=== PATIENT | male | born 1960 | race African-American/Black ===

== ENCOUNTER 2022-03-21 15:54 | Outpatient (CLI) | payer BC ==
[2022-03-21 17:01] LABS: #Basophils 0.1 10x3/uL (0.0-0.2); #Eosinphils 0.2 10x3/uL (0.0-0.5); #Monocytes 0.7 10x3/uL (0.0-1.1); #Neutrophils 2.5 10x3/uL (1.5-8.4); %Basophils 1.2 % (0.0-2.0); %Eosinophils 3.7 % (0.0-6.0); %Lymphocytes 45.9 % (18.0-47.0); %Neutrophils 37.6 % (40.0-75.0); Hemoglobin 15.4 g/dL (13.5-17.5); Mean Corpuscular HGB CONC 33.3 g/dL (32.0-36.0); Mean Corpuscular Hemoglobin 29.8 pg (27.0-33.0); Mean Corpuscular Volume 89.6 fl (81.2-95.1); Mean Platelet Volume 12.4 fl (7.4-10.4); Platelet Count 124 10x3/uL (150-450); RBC Distribution Width 13.7 % (11.5-14.5); Red Blood Cell (RBC) Count 5.17 10x6/uL (4.32-5.72); White Blood Cell (WBC) Count 6.5 10x3/uL (3.5-10.5)
[2022-03-21 17:14] LABS: PTT 22.2 sec (22.0-33.0); Prothrombin Time 10.9 sec (9.5-12.1)
[2022-03-21 17:20] LABS: Anion Gap 16 mmol/L (10-20); BUN (Urea Nitrogen) 17 mg/dL (8.4-25.7); Calc. Creatinine Clearance 0 mL/min (70-130); Calcium 9.2 mg/dL (7.8-10.44); Carbon Dioxide 30 mmol/L (23-31); Chloride 99 mmol/L (98-107); Glucose 82 mg/dL (80-115); Potassium 3.6 mmol/L (3.5-5.1); Sodium 141 mmol/L (136-145)
[2022-03-21 17:24] LABS: Platelet Morphology Comment Appears Decreased
[2022-03-22 02:13] LABS: SARS-CoV-2 PCR by NAA Not Detected (NotDetected)
== END 2022-03-21 15:55 | disposition home or self-care (01) ==
LOC: LABBT 15:54
PROVIDERS: ATTEND Orthopaedic Surgery
DX: Z01.818 Encounter for other preprocedural examination (principal); M16.11 Unilateral primary osteoarthritis, right hip; Z20.822 Contact with and (suspected) exposure to COVID-19
CPT/HCPCS: 80048; 85025; 85610; 85730; 87081; 93005; 93010; U0003; U0005

== ENCOUNTER 2022-03-26 08:05 | Observation (INO) | payer BC ==
[2022-03-21 13:09] VITALS: BMI 29.1
[2022-03-26] MEDS ORDERED: Tranexamic Acid 1,000 MG/10 ML VIAL ONE (08:16)
[2022-03-26] MEDS ORDERED: Vancomycin 1 GM/200 ML BAG ONE (08:16)
[2022-03-26] MEDS ORDERED: Sodium Chloride 0.9% 100 ML ONE (08:16)
[2022-03-26] MEDS ORDERED: Midazolam HCl 2 mg/2 ml Vial ONE ×2 (08:42→09:09)
[2022-03-26] MEDS ORDERED: Fentanyl 100 MCG/2 ML VIAL ONE ×2 (08:42→11:03)
[2022-03-26] MEDS ORDERED: Dexamethasone 4 mg/ml Vial ONE (08:42)
[2022-03-26] MEDS ORDERED: Ropivacaine 0.5% HCl/PF (150 MG/30 ML VIAL) ONE (09:00)
[2022-03-26] MEDS ORDERED: Dexamethasone 20 MG/5 ML VIAL ONE (09:00)
[2022-03-26] MEDS ORDERED: Bupivacaine PF 0.5% 30 ML VIAL ONE (09:07)
[2022-03-26] MEDS ORDERED: Propofol 1,000 MG/100 ML VIAL IV ONE (09:10)
[2022-03-26] MEDS ORDERED: HYDROcodone/Acetaminophen 10/325 mg Tablet PO PRN (09:10)
[2022-03-26] MEDS ORDERED: fentaNYL Citrate/PF 100 MCG/2 ML SYRINGE ONE (09:10)
[2022-03-26] MEDS ORDERED: Ondansetron PF 4 MG/2 ML Vial IVP PRN (09:10)
[2022-03-26] MEDS ORDERED: diphenhydrAMINE 25 MG CAP PO PRN (09:10)
[2022-03-26] MEDS ORDERED: Promethazine HCl 25 MG/ML VIAL IM PRN (09:10)
[2022-03-26] MEDS ORDERED: Acetaminophen 325 MG TAB PO PRN (09:10)
[2022-03-26] MEDS ORDERED: Zolpidem Tartrate 5 MG TAB PO PRN (09:10)
[2022-03-26] MEDS ORDERED: Non-Formulary Item 1 EACH (Albuterol Sulfate [Albuterol Sulfate Hfa] 8.5 GM Hfa.Aer.Ad) INH PRN (09:11)
[2022-03-26] MEDS ORDERED: CARISOPRODOL 350 MG PO PRN (09:11)
[2022-03-26] MEDS ORDERED: ceFAZolin (BATCH) 2 GM/100 ML BAG ONE (09:12)
[2022-03-26] MEDS ORDERED: ceFAZolin 2 GM/Dextrose 50 ML 2 GM in Premix Bag 1 BAG IVPB SCH (09:15)
[2022-03-26] MEDS ORDERED: Albuterol 200 PUFF (6.7GM INHALER) INH PRN (10:43)
[2022-03-26] MEDS ORDERED: Cyclobenzaprine 10 MG TAB PO PRN (10:50)
[2022-03-26] MEDS: Gabapentin 300 MG CAP PO SCH ×3 (16:32→21:28)
[2022-03-26] MEDS: HYDROcodone/Acetaminophen 10/325 mg Tablet PO PRN ×2 (16:32→21:29)
[2022-03-26] MEDS: Sodium Chloride 0.9% 1,000 ML IV SCH ×2 (17:28→19:33)
[2022-03-26] MEDS: Ketorolac Tromethamine 30 MG/ML VIAL IM SCH ×2 (17:29→21:28)
[2022-03-26] MEDS: CEFAZOLIN 2 GM in Sodium Chloride 0.9% 100 ML IVPB SCH (17:30)
[2022-03-26] MEDS: Fentanyl 100 MCG/2 ML VIAL SLOW IVP PRN ×2 (17:33→19:48)
[2022-03-26] MEDS: Mometasone 200 MCG/Formoterol 5 MCG 120 PUFF INHALER INH SCH (18:38)
[2022-03-26] MEDS ORDERED: Atorvastatin Calcium 20 MG TAB PO SCH (21:00)
[2022-03-26] MEDS ORDERED: ALPRAZolam 0.25 MG TAB PO SCH (21:00)
[2022-03-26] MEDS ORDERED: Simvastatin 40 MG TAB PO SCH (21:00)
[2022-03-26] MEDS ORDERED: Non-Formulary Item 1 EACH (Budesonide-Formoterol [Symbicort 160-4.5] 160 MG/4.5 MG Aer) INH SCH (21:00)
[2022-03-26] MEDS: Aspirin 81 mg Enteric Coated Tablet PO SCH (21:28)
[2022-03-26] MEDS: Ferrous Gluconate 324 MG TAB PO SCH (21:29)
[2022-03-26] MEDS: Senokot S 8.6-50 MG TAB PO SCH (21:29)
[2022-03-27] MEDS: CEFAZOLIN 2 GM in Sodium Chloride 0.9% 100 ML IVPB SCH (02:06)
[2022-03-27] MEDS: Sodium Chloride 0.9% 1,000 ML IV SCH (05:59)
[2022-03-27] MEDS: Ketorolac Tromethamine 30 MG/ML VIAL IM SCH (06:01)
[2022-03-27] MEDS: HYDROcodone/Acetaminophen 10/325 mg Tablet PO PRN ×2 (06:01→11:55)
[2022-03-27 06:12] LABS: Hemoglobin 14.3 g/dL (14.0-18.0); Mean Corpuscular HGB CONC 31.8 g/dL (32.0-36.0); Mean Corpuscular Hemoglobin 30.9 pg (27.0-31.0); Mean Corpuscular Volume 97.3 fL (78.0-98.0); Mean Platelet Volume 9.9 fL (7.4-10.4); Platelet Count 129 thou/uL (130-400); Red Blood Cell (RBC) Count 4.61 mill/uL (4.70-6.10); White Blood Cell (WBC) Count 10.6 thou/uL (4.8-10.8)
[2022-03-27] MEDS: Mometasone 200 MCG/Formoterol 5 MCG 120 PUFF INHALER INH SCH (07:08)
[2022-03-27] MEDS: Ferrous Gluconate 324 MG TAB PO SCH (08:15)
[2022-03-27] MEDS: Aspirin 81 mg Enteric Coated Tablet PO SCH (08:15)
[2022-03-27] MEDS: Senokot S 8.6-50 MG TAB PO SCH (08:16)
[2022-03-27] MEDS: Gabapentin 300 MG CAP PO SCH (08:17)
[2022-03-27 08:20] VITALS: BP 139/90
[2022-03-27 08:59] VITALS: TEMP 98.4
[2022-03-27] MEDS ORDERED: Amlodipine 10 MG TAB PO SCH (09:00)
[2022-03-27] MEDS ORDERED: Multivitamin W/ Minerals 1 TAB PO SCH (09:00)
[2022-03-27] MEDS ORDERED: Furosemide 20 MG TAB PO SCH (09:00)
[2022-03-27] MEDS ORDERED: Non-Formulary Item 1 EACH (Spironolact/Hydrochlorothiazid [Spironolactone-Hctz 25-25 Tab] PO SCH (09:00)
[2022-03-27] MEDS ORDERED: Furosemide 40 MG TAB PO SCH (09:00)
[2022-03-27] MEDS ORDERED: Hydrochlorothiazide 25 MG TAB PO SCH (09:00)
[2022-03-27] MEDS ORDERED: Spironolactone 25 MG TAB PO SCH (09:00)
== END 2022-03-27 12:14 | disposition home or self-care (01) ==
LOC: SDC 08:05 → SURG A 09:10 → SDC 16:14
PROVIDERS: ADMIT Orthopaedic Surgery; ATTEND Orthopaedic Surgery
PROC: 0SR902A Replacement of Right Hip Joint with Metal on Polyethylene Synthetic Substitute, Uncemented, Open Approach (ICD-10-PCS; principal; 2022-03-26)
PROC: 3E0T3BZ Introduction of Anesthetic Agent into Peripheral Nerves and Plexi, Percutaneous Approach (ICD-10-PCS; 2022-03-26)
DX: M87.850 Other osteonecrosis, pelvis (principal); M16.11 Unilateral primary osteoarthritis, right hip; M19.011 Primary osteoarthritis, right shoulder; F17.210 Nicotine dependence, cigarettes, uncomplicated; I11.0 Hypertensive heart disease with heart failure; I50.9 Heart failure, unspecified; J44.9 Chronic obstructive pulmonary disease, unspecified; Z86.16 Personal history of COVID-19; Z79.899 Other long term (current) drug therapy
CPT/HCPCS: 36415; 85027; 94664; 96372; 96374; 96375; 96376; C1776; G0378; J0690; J1100; J1885; J2250; J2704; J2795; J3010; J3370; J3490; S0020

== ENCOUNTER 2022-04-24 09:03 | Outpatient (CLI) | payer BC | END 2022-04-24 09:04 | disposition home or self-care (01) | LOC: BICMRI 09:03 | PROVIDERS: ATTEND Family Medicine | DX: M96.1 Postlaminectomy syndrome, not elsewhere classified (principal); M54.50 Low back pain, unspecified; G89.29 Other chronic pain; M47.816 Spondylosis without myelopathy or radiculopathy, lumbar region; M47.817 Spondylosis without myelopathy or radiculopathy, lumbosacral region; M48.061 Spinal stenosis, lumbar region without neurogenic claudication | CPT/HCPCS: 72148 ==

== ENCOUNTER 2022-06-12 09:01 | Outpatient (CLI) | payer BC ==
[2022-06-12] MEDS ORDERED: Iopamidol 370 76% 100 ML VIAL ONE (14:03)
== END 2022-06-12 09:02 | disposition home or self-care (01) ==
LOC: CT 09:01
PROVIDERS: ATTEND Thoracic Surgery (Cardiothoracic Vascular Surgery)
DX: I73.9 Peripheral vascular disease, unspecified (principal); I70.8 Atherosclerosis of other arteries
CPT/HCPCS: 75635; 82565; Q9967

== ENCOUNTER 2022-06-18 14:42 | Outpatient (CLI) | payer BC | END 2022-06-18 14:43 | disposition home or self-care (01) | LOC: TBSIIMAG 14:42 | PROVIDERS: ATTEND Physician Assistant | DX: M54.50 Low back pain, unspecified (principal); M53.3 Sacrococcygeal disorders, not elsewhere classified; I70.90 Unspecified atherosclerosis; Z98.890 Other specified postprocedural states | CPT/HCPCS: 72190 ==

== ENCOUNTER 2023-08-30 07:40 | Emergency (ER) | payer BC ==
[2023-08-30] MEDS ORDERED: Ketorolac Tromethamine 30 MG/ML VIAL ONE (08:32)
== END 2023-08-30 08:56 | disposition home or self-care (01) ==
LOC: ERS 07:40
DX: M25.531 Pain in right wrist (principal); E78.5 Hyperlipidemia, unspecified; I10 Essential (primary) hypertension; F17.210 Nicotine dependence, cigarettes, uncomplicated; Z79.899 Other long term (current) drug therapy
CPT/HCPCS: 96372; 99283; J1885